=== PATIENT | female | born 1970 | race Two or more races ===

== ENCOUNTER → 2024-10-06 | Outpatient (CLI) | payer MEDICAID, SELFPAY ==
--- NOTE | 2024-10-06 15:00 | XR_ITS ---
Examination: Arterial duplex lower extremity study. Date and time of exam: October 06, 2024 1519 hours INDICATIONS: Left leg pain 6 weeks Findings: Duplex sonographic imaging of the left lower extremity arteries using B-mode/Hawk scale imaging and Doppler spectral analysis and color flow. Ankle brachial indices have been recorded. Left common femoral artery demonstrates triphasic flow. Left superficial femoral artery demonstrates triphasic flow. Left popliteal artery demonstrates triphasic flow. Left posterior tibial artery demonstrated triphasic flow. Left ankle/brachial index is 1.3. Impression: Negative study
== END | disposition home or self-care (01) ==
LOC: CDIM 14:51
PROVIDERS: PCP Nurse Practitioner Primary Care; Referring Provider Nurse Practitioner Primary Care; Visit Provider Nurse Practitioner Primary Care
DX: I83.92 Asymptomatic varicose veins of left lower extremity (principal)
CPT/HCPCS: 93926

== ENCOUNTER → 2024-11-06 | Outpatient (CLI) | payer MEDICAID, SELFPAY ==
--- NOTE | 2024-11-06 10:45 | XR_ITS ---
Examination: Diagnostic digital mammography, unilateral, right Computer aided detection 3-D breast Tomosynthesis, unilateral Date and time of exam: November 06, 2024 1055 hours INDICATIONS: Mammogram May 09, 2023 12:00 focal asymmetry right breast, also noted on mammogram February 12, 2023 Technique: Nonmagnified MLO, CC views of the right breast have been obtained, reconstructed from 3-D Tomosynthesis images. R2 computer aided detection program utilized for evaluation of suspicious masses and/or abnormal calcifications. 3-D Tomosynthesis images obtained. Findings: Scattered areas of fibroglandular density Asymmetry in the outer right breast on the CC view, 20 mm appears more prominent Impression: BI-RADS category 0: Incomplete: Need additional imaging evaluation Focal asymmetry 20 mm outer right breast on the CC view appears more prominent, recommend follow-up spot tomographic views upper outer quadrant right breast as well as repeat right breast sonography to complete the workup
== END | disposition home or self-care (01) ==
LOC: CDIM 10:28
PROVIDERS: Referring Provider Nurse Practitioner Primary Care; Visit Provider Nurse Practitioner Primary Care
DX: R92.30 Dense breasts, unspecified (principal); N64.89 Other specified disorders of breast
CPT/HCPCS: 77061; 77065; G0279